=== PATIENT | female | born 1965 | race Caucasian/White ===

== ENCOUNTER 2022-10-06 01:45 | Emergency (ER) | payer BC, OTHER ==
[2022-10-06] MEDS: Sodium Chloride 0.9% 1,000 ML IV SCH ×2 (02:00→03:05)
[2022-10-06] MEDS ORDERED: Sodium Chloride 0.9% 10 ML Syringe FLUSH PRN (02:14)
[2022-10-06] MEDS ORDERED: LORazepam 2 MG/ML SDV IVPUSH ONE (02:16)
[2022-10-06] MEDS ORDERED: Ondansetron 4 MG/2 ML SDV IVPUSH ONE (02:18)
[2022-10-06 02:40] LABS: TROPONIN I HIGH SENSITIVITY 5.6 pg/ml (<=60.4)
[2022-10-06] MEDS ORDERED: Ondansetron 4 MG Tab.DIS ONE (04:00)
== END 2022-10-06 04:05 | disposition home or self-care (01) ==
LOC: LB.ED 01:45
DX: U07.1 COVID-19 (principal); A08.39 Other viral enteritis; E86.0 Dehydration; I10 Essential (primary) hypertension; Z79.899 Other long term (current) drug therapy
CPT/HCPCS: 36415; 80048; 82947; 83735; 84100; 84484; 85027; 93005; 93010; 96361; 96374; 96375; 99283; 99284-25; J2060; J2405; J7030; Q0162